=== PATIENT | female | born 1985 | race Caucasian/White ===

== ENCOUNTER 2018-04-26 11:35 | Emergency (ER) | payer OTHER ==
[~2018-04-26] VITALS: Ht 170.2 cm; Wt 81.6 kg
[2018-04-26 12:01] VITALS: Ht 170.2 cm; Wt 81.6 kg
[2018-04-26 12:54] LABS: BASOPHIL % 0.3 % (0-2); PLATELET COUNT 326 x10^3mcL (130-400)
[2018-04-26 13:00] LABS: CALCIUM 9.5 mg/dL (8.5-10.1); CARBON DIOXIDE 25.5 mmol/L (21-32); CHLORIDE SERUM 98 mmol/L (98-107); CREATININE SERUM 0.9 mg/dL (0.6-1.0); GFR1 > 60 mL/min; GLUCOSE SERUM 97 mg/dL (74-106); POTASSIUM SERUM 3.7 mmol/L (3.5-5.1); SODIUM SERUM 134 mmol/L (136-145)
[2018-04-26 13:05] LABS: ALBUMIN 4.3 g/dL (3.4-5.0); ALKALINE PHOSPHATASE 71 U/L (46-116); ALT/SGPT 27 U/L (14-59); AST/SGOT 14 U/L (15-37); BILIRUBIN TOTAL 0.22 mg/dL (0.20-1.00); LIPASE 171 IU/L (73-393)
[2018-04-26 13:06] LABS: TOTAL PROTEIN, SERUM 9.1 g/dL (6.4-8.2)
[2018-04-26 13:09] LABS: microscopic required? YES; urine erythrocyte NEGATIVE (NEGATIVE)
[2018-04-26 13:20] LABS: RED CELL DISTRIBUTION WIDTH 22.3 % (11.5-14.5)
[2018-04-26 13:44] LABS: rbc morphology (normal/abnorm) ABNORMAL (NORMAL)
[2018-04-26 14:36] VITALS: BP 128/73
== END 2018-04-26 14:36 | disposition home or self-care (01) ==
LOC: ED 11:35
PROVIDERS: Emergency Medicine
DX: N39.0 Urinary tract infection, site not specified (principal); N12 Tubulo-interstitial nephritis, not specified as acute or chronic
CPT/HCPCS: J0696; J7030; Q0162